=== PATIENT | female | born 1985 | race African-American/Black ===

== ENCOUNTER 2016-12-06 13:55 | Emergency (ER) | payer OTHER ==
[~2016-12-06] VITALS: Ht 180.3 cm; Wt 111.1 kg
[~2016-12-06 13:55] MED LIST: VOLTAREN75 MG PO
[2016-12-06 14:52] LABS: ABSOLUTE BASOPHIL COUNT 0 /CUMM (0.0-0.2); ABSOLUTE EOSINOPHIL COUNT 0.1 /CUMM (0.0-0.7); ABSOLUTE GRANULOCYTE CT 5.3 /CUMM (1.4-6.5); ABSOLUTE LYMPH COUNT 2.2 /CUMM (1.2-3.4); ABSOLUTE MONOCYTE COUNT 0.5 /CUMM (0.10-0.60); BASOPHIL % 0.4 % (0.0-2.0); EOSINOPHIL % 0.7 % (0-5); GRANULOCYTE % 65.5 % (42.2-75.2); HEMATOCRIT 35.9 % (37-47); MEAN CORPUSCULAR HGB 28.4 PG (27.0-31.0); MEAN CORPUSCULAR HGB CONC 33.1 G/DL (33.0-37.0); MEAN CORPUSCULAR VOLUME 85.7 FL (81.0-99.0); MEAN PLATELET VOLUME 8.2 FL (7.4-10.4); PLATELET COUNT 243 /CUMM (130-400); RBC DISTRIBUTION WIDTH 15.8 % (11.5-14.5); RED BLOOD CELL CT 4.19 /CUMM (4.20-5.40); WHITE BLOOD CELL COUNT 8.1 /CUMM (4.8-10.8)
--- NOTE | 2016-12-06 18:05 | ED GI/GU/ABDOMINAL COMPLAINT ---
History of Present Illness General Chief Complaint: Uterine Contractions(Pregnacy) Stated Complaint: ?MISCARRIAGE, 6WKS PREG, BLEEDING Source: patient Exam Limitations: no limitations Vital Signs & Intake/Output Vital Signs & Intake/Output Vital Signs Date Time Temp Pulse Resp B/P Pulse O2 O2 Flow FiO2 Ox Delivery Rate 12/07 1931 97.8 75 18 124/78 99 Room Air Room Air 12/06 1757 97.1 80 18 130/80 98 Room Air 12/06 1415 97.1 84 18 130/83 97 Room Air Allergies Coded Allergies: NO KNOWN ALLERGIES (10/20/15) Reconcile Medications Diclofenac Sodium (Voltaren) 75 MG ECT 1 TAB PO BID PRN OVARIAN CYST PAIN Triage Note: 31 SINCE THIS AM WITH 1 EPISODE OF VAGINAL BLEEDING. PT CURRENTLY 6 WEEKS ; WITH HX [address] BLACKWOOD. PT STATES SHE HAD US DONE AT OB OFFICE LAST WEEK AND WAS TOLD NO HEARTBEAT WAS DETECTED BUT IT WAS TOO EARLY; DUE TO FOLLOW UP IN OB OFFICE TOMORROW. Triage Nurses Notes Reviewed? yes ? y Is pt currently ? No Onset: Abrupt Duration: hour(s):, constant Radiation: no radiation Prior Abdominal Problems: none No Modifying Factors: none HPI: 31-year-old female that is approximately 6 weeks comes into emergency room with lower abdominal cramping back pain and some vaginal spotting that began today. No complications otherwise. Denies any fever chills vomiting. Nothing seems to make the symptoms better. Denies any heavy clots coming out. Some bright red blood when she wiped initially and is slightly darker in color upon wiping later. (IRON ALONZO) Past History Travel History Traveled to [place] past 21 day No Medical History Any Pertinent Medical History? see below for history Neurological: NONE EENT: NONE Cardiovascular: NONE Respiratory: NONE Gastrointestinal: NONE Hepatic: NONE Renal: NONE Musculoskeletal: NONE Psychiatric: NONE Endocrine: NONE Blood Disorders: NONE Cancer(s): NONE Surgical History Surgical History: non-contributory Psychosocial History What is your primary language E[place]rean Tobacco Use: Never used Family History Hx Contributory? No (IRON ALONZO) Review of Systems Review of Systems Constitutional: Reports: no symptoms. EENTM: Reports: no symptoms. Respiratory: Reports: no symptoms. Cardiovascular: Reports: no symptoms. GI: Reports: see HPI. Genitourinary: Reports: see HPI. Musculoskeletal: Reports: no symptoms. Skin: Reports: no symptoms. Neurological/Psychological: Reports: no symptoms. Hematologic/Endocrine: Reports: no symptoms. Immunologic/Allergic: Reports: no symptoms. All Other Systems: Reviewed and Negative (IRON ALONZO) Physical Exam Physical Exam General Appearance: well developed/nourished, alert, awake Head: atraumatic, normal appearance Eyes: Bilateral: normal appearance, EOMI. Ears, Nose, Throat, Mouth: hearing grossly normal, moist mucous membrane Neck: normal inspection Respiratory: normal breath sounds, no respiratory distress Cardiovascular: regular rate/rhythm Gastrointestinal: soft, tenderness Back: normal inspection Extremities: normal range of motion Neurologic/Psych: awake, alert, oriented x 3, normal gait, normal mood/affect Skin: intact, normal color Core Measures ACS in differential dx? No Severe Sepsis Present: No Septic Shock Present: No (IRON ALONZO) Progress Differential Diagnosis: appendicitis, biliary colic, bowel obstruction, colon cancer, diverticulitis, ectopic , ovarian cyst, ovarian torsion, pancreatitis, PID/cervicitis, peptic ulcer, PUD/GERD, perforated viscous, SBO, UTI/pyelo Plan of Care: Orders Procedure Date/time Status URINALYSIS 12/06 141 Complete HUMAN BETA HCG TITRE 12/06 141 Complete COMPREHENSIVE METABOLIC PANEL 12/06 141 Complete CBC WITHOUT DIFFERENTIAL 12/06 1416 Complete TYPE & SCREEN (NOT X-MATCH) 12/06 141 Complete Laboratory Tests 12/06/16 1653: Urinalysis HEAVY H, Urine Color STRAW, Urine Clarity HAZY H, Urine pH 7.0, Ur Specific [place] 1.015, Urine Protein NEG, Urine Ketones NEG, Urine Nitrite NEG, Urine Bilirubin NEG, Urine Urobilinogen 0.2, Ur Leukocyte Esterase NEG, Ur Microscopic SEDIMENT EXAMINED, Urine RBC 3-5, Ur Epithelial Cells MOD H, Urine Hemoglobin MOD H, Urine Glucose NEG 12/06/16 1437: Anion Gap 9, Estimated GFR > 60, BUN/Creatinine Ratio 12.2, Glucose 91, Calcium 9.7, Total Bilirubin 0.4, AST 16, ALT 31, Alkaline Phosphatase 86, Total Protein 7.5, Albumin 3.9, Globulin 3.6, Albumin/Globulin Ratio 1.1, Beta HCG, Quant 69120.0, CBC w Diff NO MAN DIFF REQ, RBC 4.19 L, MCV 85.7, MCH 28.4, RDW 15.8 H, MPV 8.2, Gran % 65.5, Lymphocytes % 27.4, Monocytes % 6.0, Eosinophils % 0.7, Basophils % 0.4, Absolute Granulocytes 5.3, Absolute Lymphocytes 2.2, Absolute Monocytes 0.5, Absolute Eosinophils 0.1, Absolute Basophils 0, PUBS MCHC 33.1 Diagnostic Imaging: Viewed by Me: Ultrasound. Discussed w/RAD: Ultrasound. Radiology Impression: EXAM TYPE: US - US-TRANSVAGINAL EXAMINATION: ULTRASOUND PELVIC, CLINICAL INFORMATION: 6 week . Cramping. Spotting. COMPARISON: None. TECHNIQUE: Transvaginal: Used to better visualize pelvic structures Transabdominal: Not adequate for visualization Spectral Doppler and color Doppler exam was utilized. LMP: 10/17/2016. Gestational age 7 weeks 1 day. BRONWYN 07/24/2017. FINDINGS: UTERUS: Intrauterine gestational sac. There is a yolk sac present. pole is present. motion is seen. heart rate 112 bpm. [place]-rump length 0.32 cm. Gestational age by ultrasound is 6 weeks 0 days. BRONWYN 08/01/2017. ADNEXA: Ovarian vascularity:Doppler demonstrates both arterial and venous vascular flow in the right and left ovary. No evidence of ovarian torsion. Right Ovary: 3.2 x 1.6 x 1.6 cm Left Ovary: Corpus luteum cyst measuring 1.7 x 1.4 x 1.3 cm. The left ovary measures 3.2 x 2.8 x 1.9 cm Cul-de- sac: No Fluid IMPRESSION: Single intrauterine gestation with estimated gestational age by this ultrasound of 6 weeks 0 days, BRONWYN 08/01/2017. DICTATED BY: IRENE ESCOBEDO MD DATE/TIME DICTATED:12/06/161855 BUILDING ASSOCIATE:JEB DATE/TIME TRANSCRIBED:12/06/161855 Initial ED EKG: none Comments: 12/06/2016 7:27:49 PM Patient clinically looks well. Patient is nontoxic-appearing. Patient is in no apparent distress. Patient resting comfortably in room. No evidence of acute miscarriage. Follow-up with VIDEO PRODUCTION INTERN doctor tomorrow. Patient reports that she already has an appointment. Patient is RH+. Patient does not require RHOGAM. Results discussed with patient. (IRON ALONZO) Departure Departure Disposition: HOME OR SELF CARE Condition: Stable Clinical Impression Primary Impression: Vaginal bleeding before 22 weeks gestation Referrals: YVON BHAGAT (PCP/Family) Additional Instructions: Follow-up with your VIDEO PRODUCTION INTERN doctor tomorrow. Return to emergency room immediately if any concerns worsening of symptoms. Please go over all results of today's visit with your primary care doctor. Contact your primary care doctor to let them know you were here in the emergency room. There may be nonspecific findings which may not be related to your visit today here in the emergency room but may require further evaluation and chronic monitoring by your primary care doctor. If you had a laceration today the chance of foreign body always remains. You should follow-up with your primary care doctor for recheck in 3-5 days for a wound check. If you had an x-ray done there is a chance that a fracture could have been missed on initial read and you should follow-up with your primary care doctor for repeat x-rays if symptoms persist. If your blood pressure was elevated here in the emergency room please have rechecked by her primary care doctor within the next 48 hours by your primary care doctor. If you were prescribed a narcotic here in the emergency room or any type of controlled substances you're not allowed to drive while taking this medication or operate any type of heavy machinery. Narcotics can make you feel lightheaded dizziness nausea and can cause constipation. You may need to package pick up a stool softener. Thank you for choosing [facility] emergency room. Please return to the emergency room immediately if you have any other concerns worsening of symptoms. Departure Forms: Customer Survey General Discharge Information (IRON ALONZO) PA/CLOTH COLORER Co-Sign Statement Statement: ED Attending supervision documentation- [X] I saw and evaluated the patient. I have also reviewed all the pertinent lab results and diagnostic results. I agree with the findings and the plan of care as documented in the PA's/CLOTH COLORER's documentation. [] I have reviewed the ED Record and agree with the PA's/CLOTH COLORER's documentation. [] Additions or exceptions (if any) to the PAs/CLOTH COLORER's note and plan are summarized below: [] (CARL JAMES DO
--- NOTE | 2016-12-06 19:03 | ULTRASOUND REPORT ---
EXAMINATION: ULTRASOUND PELVIC, CLINICAL INFORMATION: 6 week . Cramping. Spotting. COMPARISON: None. TECHNIQUE: Transvaginal: Used to better visualize pelvic structures Transabdominal: Not adequate for visualization Spectral Doppler and color Doppler exam was utilized. LMP: 10/17/2016. Gestational age 7 weeks 1 day. BRONWYN 07/24/2017. FINDINGS: UTERUS: Intrauterine gestational sac. There is a yolk sac present. pole is present. motion is seen. heart rate 112 bpm. [place]-rump length 0.32 cm. Gestational age by ultrasound is 6 weeks 0 days. BRONWYN 08/01/2017. ADNEXA: Ovarian vascularity:Doppler demonstrates both arterial and venous vascular flow in the right and left ovary. No evidence of ovarian torsion. Right Ovary: 3.2 x 1.6 x 1.6 cm Left Ovary: Corpus luteum cyst measuring 1.7 x 1.4 x 1.3 cm. The left ovary measures 3.2 x 2.8 x 1.9 cm Cul-de-sac: No Fluid IMPRESSION: Single intrauterine gestation with estimated gestational age by this ultrasound of 6 weeks 0 days, BRONWYN 08/01/2017.
[2016-12-06 19:32] VITALS: BP 124/78
== END 2016-12-06 19:33 ==
LOC: ERH 13:55
PROVIDERS: Emergency Medicine
DX: O20.9 Hemorrhage in early pregnancy, unspecified (principal)
CPT/HCPCS: 81001